=== PATIENT | female | born 1965 | race Caucasian/White ===

== ENCOUNTER 2020-08-02 05:16 | Emergency (ER) | payer OTHER ==
[~2020-08-02] VITALS: Ht 162.6 cm; Wt 117.9 kg
[~2020-08-02 05:16] MED LIST: ACETAMINOPHEN-120 ML PO; ALEVE220 MG PO; AUGMENTIN 875875 M1 PO; CLARITIN10 MG PO; DEMADEX20 MG PO; DOXYCYCLINE 10100 MG PO; FLONASE 0.05%50 MCG NASAL; FLONASE IH; GLUCOPHAGE1000 MG PO; JANUVIA100 MG PO; KLOR-CON 10 ER10 MEQ PO; KLOR-CON 1010 MEQ PO; LISINOPRIL10 MG PO; MUCINEX600 MG PO; NASACORT10.8 ML NS; NORCO 5-325 TA1 EACH PO; PHENERGAN 25 MG25 M1 PO; SINGULAIR 10 MG10 M1 PO; TOBRAMYCIN SULFA5 ML OP; TOPROL XL50 MG PO; TORSEMIDE20 MG PO; VENTOLIN17 GM INH
[2020-08-02] MEDS ORDERED: OZEMPIC0.25 MG/0. SUBQ (05:23)
[2020-08-02] MEDS ORDERED: CELECOXIB100 MG PO (05:24)
[2020-08-02] MEDS ORDERED: NORVASC 2.5 MG2.5 M1 PO (05:24)
--- NOTE | 2020-08-02 09:50 | EKG ---
[place] [address] [employer] [address] [place] [address] ELECTROCARDIOGRAM REPORT Name: DAMARIS MACKENZIE Room #: [facility] [id number] Admission: 08/02/20 Attend Phys: Discharge: Date of : 61 Report #: [id number] [facility] ED Test Date: 2020-08-02 Test Time: 05:30:06 Pat Name: DAMARIS MACKENZIE Department: Room: Gender: F Sawsmith: LUIS CARLOS : 1965 Requested By: Justin Fierro Order Number: [id number] MD: Mandeep Solomon Measurements Intervals [place] Rate: 95 P: 63 MO: 138 QRS: 35 QRSD: 100 T: -20 QT: 371 QTc: 467 Interpretive Statements Sinus rhythm Probable left atrial enlargement Borderline T abnormalities, inferior leads Compared to ECG 07/14/2015 00:06:36 T-wave abnormality now present Sinus tachycardia no longer present Electronically Signed On 08-02-2020 9:50:32 [employer] by Mandeep Solomon [email or web address] <ELECTRONICALLY SIGNED> By: Mandeep Solomon MD, [facility] 08/02/20 0950 [id number] 9 Mandeep Solomon MD, FACC /EPI
[2020-08-02 10:55] LABS: ABSOLUTE NEUTROPHILS 9.3 thou/uL (1.4-8.2); BASOPHILS 0.5 % (0.0-2.0); EOSINOPHILS 0.3 % (0.0-3.0); HEMATOCRIT 35.3 % (37.0-47.0); HEMOGLOBIN 10.9 gm/dL (12.0-15.0); LYMPHOCYTES 9.7 % (24.0-44.0); MCH 21.6 pg (26.0-34.0); MCHC 30.7 g/dL (28.0-37.0); MCV 70.2 fL (80.0-100.0); PLATELET COUNT 262 thou/uL (150-400); POLYS 85.5 % (36.0-66.0); RBC 5.03 mil/uL (4.20-5.00); RDW 16.4 % (10.5-14.5); WBC 10.9 thou/uL (4.0-11.0)
[2020-08-02 11:09] LABS: CALCIUM 9.6 mg/dL (8.5-10.1); CREATININE 0.8 mg/dL (0.6-1.0); POTASSIUM 4.8 mmol/L (3.5-5.1)
[2020-08-02] MEDS ORDERED: ZOFRAN ODT4 MG PO (13:11)
[2020-08-02] MEDS ORDERED: MECLIZINE HCL25 M1 PO (13:11)
[2020-08-02 13:19] VITALS: BP 138/52
[2020-08-02 13:23] LABS: ANISOCYTOSIS 1+; HYPOCHROMASIA 1+; MICROCYTES 1+
== END 2020-08-02 13:19 | disposition still patient (30) ==
LOC: ER 05:16
PROVIDERS: Emergency Medicine
DX: R42 Dizziness and giddiness (principal); G93.9 Disorder of brain, unspecified; I10 Essential (primary) hypertension; E11.9 Type 2 diabetes mellitus without complications; Z79.899 Other long term (current) drug therapy

== ENCOUNTER 2020-11-08 10:25 | Emergency (ER) | payer OTHER ==
[~2020-11-08] VITALS: Ht 165.1 cm; Wt 115.2 kg
[~2020-11-08 10:25] MED LIST changes: +CELECOXIB100 MG PO; +MECLIZINE HCL25 M1 PO; +NORVASC 2.5 MG2.5 M1 PO; +OZEMPIC0.25 MG/0. SUBQ; +ZOFRAN ODT4 MG PO
[2020-11-08 11:16] LABS: ABSOLUTE NEUTROPHILS 4.7 thou/uL (1.4-8.2); BASOPHILS 0.9 % (0.0-2.0); EOSINOPHILS 3.1 % (0.0-3.0); HEMATOCRIT 35.2 % (37.0-47.0); HEMOGLOBIN 10.8 gm/dL (12.0-15.0); LYMPHOCYTES 22.5 % (24.0-44.0); MCH 21.3 pg (26.0-34.0); MCHC 30.7 g/dL (28.0-37.0); MCV 69.4 fL (80.0-100.0); MONOCYTES 8.7 % (1.0-8.0); PLATELET COUNT 224 thou/uL (150-400); POLYS 64.8 % (36.0-66.0); RBC 5.08 mil/uL (4.20-5.00); WBC 7.3 thou/uL (4.0-11.0)
[2020-11-08 11:29] LABS: ANION GAP 11 mmol/L (7-16); BUN 11 mg/dL (7-18); CALCIUM 8.7 mg/dL (8.5-10.1); CHLORIDE 100 mmol/L (98-107); CO2 26 mmol/L (21-32); CREATININE 0.8 mg/dL (0.6-1.0); GLUCOSE 319 mg/dL (74-106); POTASSIUM 4.3 mmol/L (3.5-5.1); SODIUM 137 mmol/L (136-145)
[2020-11-08 11:40] LABS: ALBUMIN 3.7 g/dL (3.4-5.0); SGOT 40 U/L (15-37); SGPT 56 U/L (30-65); TOTAL BILIRUBIN 0.5 mg/dL (0.2-1.0); TOTAL PROTEIN 7.6 g/dL (6.4-8.2); TROPONIN-I <0.06 ng/mL (<0.06)
[2020-11-08 12:10] VITALS: BP 140/62
[2020-11-08 13:10] LABS: HYPOCHROMASIA 1+; POLYCHROMASIA 1+
--- NOTE | 2020-11-09 06:58 | EKG ---
[place] [address] [facility] [place] [address] ELECTROCARDIOGRAM REPORT Name: KHUSHBOO MACKENZIELEY Yfn [id number] Admission: 11/08/20 Attend Phys: Discharge: 11/08/20 Date of : 61 Report #: [id number] [facility] ED Test Date: 2020-11-08 Test Time: 10:30:37 Pat Name: DAMARIS MACKENZIE Department: Room: Gender: F Supervisor [employer]: ADRIANNA : 1965 Requested By: Mandeep Salazar Order Number: [id number] MD: Mandeep Solomon Measurements Intervals [place] Rate: 99 P: 63 MA: 141 QRS: 40 QRSD: 99 T: 4 QT: 344 QTc: 442 Interpretive Statements Sinus rhythm Compared to ECG 08/02/2020 05:30:06 T-wave abnormality no longer present Electronically Signed On 11-09-2020 6:58:16 CDT by Mandeep Solomon [email or web address] <ELECTRONICALLY SIGNED> By: Mandeep Solomon MD, [facility] 11/09/20 0658 1030 1030 Mandeep Solomon MD, FACC /EPI
== END 2020-11-08 12:07 | disposition home or self-care (01) ==
LOC: ER 10:25
PROVIDERS: Emergency Medicine
DX: R00.2 Palpitations (principal); E11.65 Type 2 diabetes mellitus with hyperglycemia; I10 Essential (primary) hypertension; Z79.899 Other long term (current) drug therapy